=== PATIENT | female | born 1980 | race Caucasian/White ===

== ENCOUNTER 2023-06-22 15:31 | Inpatient (IN) | payer OTHER ==
[2023-06-22 16:04] VITALS: BMI 23.4
[2023-06-22] MEDS ORDERED: MAGNESIUM HYDROX 2400MG/30ML ORAL SUSPENSION 30 ML CUP PO PRN (21:24)
[2023-06-22] MEDS ORDERED: POLYETHYLENE GLYCOL (HEALTHYLAX) 3350 17 GM PACKET PO PRN (21:24)
[2023-06-22] MEDS ORDERED: MAG HYDROX/AL HYDROX/SIMETH 30 ML UNIT-DOSE CUP PO PRN (21:24)
[2023-06-22] MEDS ORDERED: BENZONATATE 200 MG CAPSULE PO PRN (21:24)
[2023-06-22] MEDS ORDERED: NALOXONE HCL (KLOXXADO) 8 MG SPRAY NS PRN (21:24)
[2023-06-22] MEDS ORDERED: NALOXONE HCL 0.4 MG/ML VIAL IM PRN (21:24)
[2023-06-22] MEDS ORDERED: NICOTINE POLACRILEX 2 MG GUM BUC PRN (21:24)
[2023-06-22] MEDS ORDERED: LOPERAMIDE HCL 2 MG CAPSULE PO PRN (21:24)
[2023-06-22] MEDS ORDERED: guaiFENesin 600 MG TABLET.ER (FP) PO PRN (21:24)
[2023-06-22] MEDS ORDERED: ACETAMINOPHEN 325 MG TABLET (FP) PO PRN (21:24)
[2023-06-22] MEDS ORDERED: BENZOCAINE/MENTHOL (CHLORASEPTIC ) LOZENGE MM PRN (21:24)
[2023-06-22] MEDS ORDERED: BISMUTH SUBSALICYLATE 524 MG/30 ML PO PRN (21:24)
[2023-06-22] MEDS ORDERED: IBUPROFEN 400 MG TABLET (FP) PO PRN (21:24)
[2023-06-22] MEDS ORDERED: cloNIDine HCL 0.1 MG TABLET PO PRN (21:28)
[2023-06-22] MEDS ORDERED: ALBUTEROL SO4 HFA INHALER IH PRN (21:29)
[2023-06-22] MEDS ORDERED: methaDONE HCL 10 MG TABLET (FOR DETOX USE ONLY) ONE (23:39)
[2023-06-22] MEDS ORDERED: MELATONIN 5 MG TABLETS ONE (23:39)
[2023-06-22] MEDS: methaDONE HCL 10 MG TABLET (FOR DETOX USE ONLY) PO ONE (23:50)
[2023-06-22] MEDS: MELATONIN 5 MG TABLETS PO SCH (23:51)
[2023-06-22] MEDS: THIAMINE HCL 100 MG TABLET (FP) PO SCH (23:51)
[2023-06-23] MEDS: INSULIN ASPART SLIDING SCALE (NOVOLOG) 1 VIAL SQ SCH (07:13)
[2023-06-23] MEDS: NICOTINE 14 MG/24 HOURS TOPICAL PATCH TD SCH (10:22)
[2023-06-23] MEDS: PRENATAL VITAMINS W/ FOLIC ACID TABLET (FP) PO SCH (10:22)
[2023-06-23] MEDS: DICYCLOMINE HCL 10 MG CAPSULE PO PRN (10:23)
[2023-06-23 11:26] LABS: HEMATOCRIT 34.7 % (32.4-45.2); HEMOGLOBIN 11.4 GM/dL (10.7-15.3); MCH 25.7 pg (25.7-33.7); MCHC 32.8 g/dl (32.0-36.0); MEAN CELL VOLUME 78.6 fl (80-96); MEAN PLT VOLUME 8.5 fl (7.5-11.1); PLATELET COUNT 343 10^3/uL (134-434); RBC 4.42 M/mm3 (3.60-5.2); RDW 15.3 % (11.6-15.6)
[2023-06-23 12:07] LABS: CHLORIDE 105 mmol/L (98-107); POTASSIUM 3.9 mmol/L (3.5-5.1); SODIUM 140 mmol/L (136-145)
[2023-06-23 12:12] LABS: ANION GAP 6 mmol/L (4-13); BLOOD UREA NITROGEN 5.7 mg/dL (7-18); CO2 29 mmol/L (21-32); GLUCOSE,RANDOM 157 mg/dL (74-106)
[2023-06-23 12:13] LABS: ALBUMIN 2.5 g/dl (3.4-5.0)
[2023-06-23 12:15] LABS: CREATININE 0.5 mg/dL (0.55-1.3); SGOT/AST 7 U/L (15-37); SGPT/ALT 12 U/L (13-61)
[2023-06-23 12:17] LABS: BILIRUBIN,TOTAL 0.4 mg/dL (0.2-1); TOT PROT 6.3 g/dl (6.4-8.2)
[2023-06-23 12:18] LABS: ALK PHOS 97 U/L (45-117)
[2023-06-24] MEDS: hydrOXYzine PAMOATE 25 MG CAPSULE (FP) PO PRN (05:23)
[2023-06-24] MEDS: METHOCARBAMOL 500 MG TABLET PO PRN (05:24)
[2023-06-24] MEDS: metFORMIN HCL 500 MG TABLET (FP) PO SCH (06:41)
[2023-06-24] MEDS: methaDONE HCL 10 MG TABLET (FOR DETOX USE ONLY) PO ONE (10:35)
[2023-06-24] MEDS: ONDANSETRON *ODT* 4 MG TABLET SL PRN ×2 (11:28→19:40)
[2023-06-24 12:26] LABS: POTASSIUM 3.8 mmol/L (3.5-5.1)
[2023-06-24 12:39] LABS: BLOOD UREA NITROGEN 5.2 mg/dL (7-18); CALCIUM 8.7 mg/dL (8.5-10.1)
[2023-06-24 12:42] LABS: CREATININE 0.6 mg/dL (0.55-1.3)
[2023-06-24] MEDS: TRIMETHOBENZAMIDE HCL 200MG/2ML INJ IM ONE (13:13)
[2023-06-24] MEDS: diazePAM 5 MG TABLET PO PRN (21:30)
[2023-06-25] MEDS ORDERED: INSULIN ASPART SLIDING SCALE (NOVOLOG) 1 VIAL SQ ONE (04:24)
[2023-06-25 12:16] LABS: BASO % 0.6 % (0-2.0); EOS % 0.6 % (0-4.5); HEMATOCRIT 39.3 % (32.4-45.2); HEMOGLOBIN 12.9 GM/dL (10.7-15.3); LYMPH % 13.9 % (8-40); MCH 25.6 pg (25.7-33.7); MCHC 32.8 g/dl (32.0-36.0); MEAN CELL VOLUME 78.1 fl (80-96); MEAN PLT VOLUME 8.3 fl (7.5-11.1); MONO % 5.8 % (3.8-10.2); NEUT % 79.1 % (42.8-82.8); PLATELET COUNT 476 10^3/uL (134-434); POTASSIUM 3.8 mmol/L (3.5-5.1); RBC 5.03 M/mm3 (3.60-5.2); RDW 15.2 % (11.6-15.6)
[2023-06-25 12:17] LABS: CALCIUM 9.2 mg/dL (8.5-10.1)
[2023-06-25 12:18] LABS: BLOOD UREA NITROGEN 9.4 mg/dL (7-18)
[2023-06-25 12:21] LABS: CREATININE 0.7 mg/dL (0.55-1.3)
[2023-06-25 17:19] LABS: EPI CELLS >36 /uL (0-25.1); HYALINE CASTS 4 /uL (0-3.1); PH,URINE 7.5 (5.0-8.0); URINE APPEARANCE CLEAR; URINE BACTERIA 289 /uL (0-1359); URINE BILIRUBIN 1+ (NEGATIVE); URINE COLOR DK YELLOW; URINE GLUCOSE (UA) TRACE (NEGATIVE); URINE KETONE 1+ (NEGATIVE); URINE LEUK ESTERASE TRACE (NEGATIVE); URINE NITRITE NEGATIVE (NEGATIVE); URINE PROTEIN 1+ (NEGATIVE); URINE RBC 7 /uL (0-23.9); URINE WBC 20 /uL (0-25.8)
[2023-06-26] MEDS: methaDONE HCL 10 MG TABLET (FOR DETOX USE ONLY) PO ONE (10:16)
[2023-06-26] MEDS: hydrOXYzine PAMOATE 25 MG CAPSULE (FP) PO PRN (17:09)
[2023-06-26 21:22] VITALS: RESP 18
[2023-06-26] MEDS: diazePAM 5 MG TABLET PO ONE (23:51)
[2023-06-27] MEDS: IBUPROFEN 600 MG TABLET (FP) PO PRN (04:05)
[2023-06-27 09:14] VITALS: BP 157/98; PULSE 84; TEMP 97.5
== END 2023-06-27 10:17 | disposition home or self-care (01) | DRG 773 ==
LOC: YASAS 15:31 → Y3N 23:39
PROVIDERS: ADMIT Allergy & Immunology; ATTEND Surgery
PROC: HZ2ZZZZ Detoxification Services for Substance Abuse Treatment (ICD-10-PCS; principal; 2023-06-22)
DX: F11.23 Opioid dependence with withdrawal (principal); F14.20 Cocaine dependence, uncomplicated; F12.20 Cannabis dependence, uncomplicated; F17.210 Nicotine dependence, cigarettes, uncomplicated; D72.819 Decreased white blood cell count, unspecified; E78.5 Hyperlipidemia, unspecified; E11.9 Type 2 diabetes mellitus without complications; Z79.84 Long term (current) use of oral hypoglycemic drugs; R11.2 Nausea with vomiting, unspecified
CPT/HCPCS: 36415; 80048; 80053; 80305; 80307; 81003; 81025; 82962; 85025; 85027; 86780; 87635; 87811; 93005; 93010; Q0162

== ENCOUNTER 2023-08-12 20:42 | Inpatient (IN) | payer OTHER ==
[2023-08-12 23:42] VITALS: BMI 23.0
[2023-08-13] MEDS ORDERED: ACETAMINOPHEN 325 MG TABLET (FP) PO PRN (00:30)
[2023-08-13] MEDS ORDERED: NICOTINE POLACRILEX 2 MG GUM BUC PRN (00:30)
[2023-08-13] MEDS ORDERED: IBUPROFEN 600 MG TABLET (FP) PO PRN (00:30)
[2023-08-13] MEDS ORDERED: BISMUTH SUBSALICYLATE 524 MG/30 ML PO PRN (00:30)
[2023-08-13] MEDS ORDERED: MAG HYDROX/AL HYDROX/SIMETH 30 ML UNIT-DOSE CUP PO PRN (00:30)
[2023-08-13] MEDS ORDERED: LOPERAMIDE HCL 2 MG CAPSULE PO PRN (00:30)
[2023-08-13] MEDS ORDERED: BENZONATATE 200 MG CAPSULE PO PRN (00:30)
[2023-08-13] MEDS ORDERED: guaiFENesin 600 MG TABLET.ER (FP) PO PRN (00:30)
[2023-08-13] MEDS ORDERED: NALOXONE HCL 0.4 MG/ML VIAL IM PRN (00:30)
[2023-08-13] MEDS ORDERED: IBUPROFEN 400 MG TABLET (FP) PO PRN (00:30)
[2023-08-13] MEDS ORDERED: NALOXONE HCL (KLOXXADO) 8 MG SPRAY NS PRN (00:30)
[2023-08-13] MEDS ORDERED: BENZOCAINE/MENTHOL (CHLORASEPTIC ) LOZENGE MM PRN (00:30)
[2023-08-13] MEDS ORDERED: POLYETHYLENE GLYCOL (HEALTHYLAX) 3350 17 GM PACKET PO PRN (00:30)
[2023-08-13] MEDS ORDERED: DICYCLOMINE HCL 10 MG CAPSULE PO PRN (00:30)
[2023-08-13] MEDS ORDERED: MAGNESIUM HYDROX 2400MG/30ML ORAL SUSPENSION 30 ML CUP PO PRN (00:30)
[2023-08-13] MEDS ORDERED: methaDONE HCL 10 MG TABLET (FOR DETOX USE ONLY) ONE (01:04)
[2023-08-13] MEDS: methaDONE HCL 10 MG TABLET (FOR DETOX USE ONLY) PO ONE (01:11)
[2023-08-13 09:16] VITALS: RESP 16
[2023-08-13] MEDS: PRENATAL VITAMINS W/ FOLIC ACID TABLET (FP) PO SCH (10:10)
[2023-08-13] MEDS: hydrOXYzine PAMOATE 25 MG CAPSULE (FP) PO PRN (10:12)
[2023-08-13] MEDS: METHOCARBAMOL 500 MG TABLET PO PRN (10:12)
[2023-08-13] MEDS ORDERED: ALBUTEROL SO4 HFA INHALER IH PRN (15:32)
[2023-08-13] MEDS: metFORMIN HCL 500 MG TABLET (FP) PO SCH (16:58)
[2023-08-13] MEDS: cloNIDine HCL 0.1 MG TABLET PO PRN (18:00)
[2023-08-13] MEDS: MELATONIN 5 MG TABLETS PO SCH (22:43)
[2023-08-13] MEDS: ONDANSETRON *ODT* 4 MG TABLET SL PRN (22:43)
[2023-08-13] MEDS: THIAMINE 100 MG TABLET PO SCH (22:49)
[2023-08-14 12:04] LABS: ALBUMIN 2.9 g/dl (3.4-5.0); BLOOD UREA NITROGEN 13.3 mg/dL (7-18); CALCIUM 8.7 mg/dL (8.5-10.1)
[2023-08-14 12:07] LABS: CREATININE 0.7 mg/dL (0.55-1.3)
[2023-08-14 12:08] LABS: BILIRUBIN,TOTAL 0.6 mg/dL (0.2-1); TOT PROT 6.1 g/dl (6.4-8.2)
[2023-08-14 12:12] LABS: HEMATOCRIT 38.8 % (32.4-45.2); HEMOGLOBIN 12.4 GM/dL (10.7-15.3); MCH 25.9 pg (25.7-33.7); MCHC 31.9 g/dl (32.0-36.0); MEAN CELL VOLUME 81.3 fl (80-96); MEAN PLT VOLUME 8.9 fl (7.5-11.1); PLATELET COUNT 201 10^3/uL (134-434); RBC 4.77 M/mm3 (3.60-5.2); RDW 17.7 % (11.6-15.6); WHITE BLOOD COUNT 3.9 K/mm3 (4.0-10.0)
[2023-08-14 13:15] VITALS: BP 138/87; PULSE 65; TEMP 97.7
[2023-08-15] MEDS ORDERED: methaDONE HCL 10 MG TABLET (FOR DETOX USE ONLY) PO ONE (10:00)
[2023-08-17] MEDS ORDERED: methaDONE HCL 10 MG TABLET (FOR DETOX USE ONLY) PO ONE (10:00)
== END 2023-08-14 14:50 | disposition home or self-care (01) | DRG 773 ==
LOC: YASAS 20:42 → Y6N 08-13 00:50
PROVIDERS: ADMIT Allergy & Immunology; ATTEND Surgery
PROC: HZ2ZZZZ Detoxification Services for Substance Abuse Treatment (ICD-10-PCS; principal; 2023-08-13)
DX: F11.23 Opioid dependence with withdrawal (principal); F14.20 Cocaine dependence, uncomplicated; F17.210 Nicotine dependence, cigarettes, uncomplicated; J45.20 Mild intermittent asthma, uncomplicated; E11.9 Type 2 diabetes mellitus without complications; Z79.84 Long term (current) use of oral hypoglycemic drugs
CPT/HCPCS: 36415; 80053; 80305; 80307; 81025; 83036; 85027; 86780; 93005; 93010; Q0162